=== PATIENT | female | born 1985 ===

== ENCOUNTER 2018-08-16 12:25 | Emergency (ER) | payer OTHER ==
--- NOTE | 2018-08-16 12:35 | ER Report ---
History and Physical Time Seen By MD: 12:35 HPI/ROS CHIEF COMPLAINT: Seizure HISTORY OF PRESENT ILLNESS: 32-year-old female patient presents to emergency room with complaint of a seizure. Patient states that she was at physical therapy this morning. She states that she was being palpated to the right shoulder. She states that she became dizzy, nauseated, states she was feeling sweaty. She states that she then passed out. She states when she came to she was informed by the physical therapist that she had had a seizure. Patient states that she did not have a postictal phase. She states that she was out of it for approximately 20 seconds and then came to normally. She states that currently she feels fine. She states she has had a history of abnormal heart beat intermittently. She states that she often will feel a hard beat in the chest. She also states that she has been intermittently dizzy for quite some time. She states there is nothing seems to precipitate her dizziness. Patient states that when she had come to that they checked her blood pressure and she was told that it was very low at that time. REVIEW OF SYSTEMS: Respiratory: No cough, no dyspnea. Cardiovascular: No chest pain, no palpitations. Gastrointestinal: No vomiting, no abdominal pain. Musculoskeletal: No back pain. Allergies: Coded Allergies: Penicillins (Verified Allergy, Unknown, 08/16/18) Sulfa (Sulfonamide Antibiotics) (Verified Allergy, Unknown, 08/16/18) aspirin (Verified Allergy, Unknown, 08/16/18) ciprofloxacin (Verified Allergy, Unknown, 08/16/18) Past Medical/Surgical History Patient has no pertinent medical history. Patient has a surgical history of wisdom teeth removed. Reviewed Nurses Notes: Yes Constitutional Vital Sign - Last 24 Hours 08/16/18 08/16/18 12:34 14:00 Temp 97.5 Pulse 76 71 84 75 Resp 20 B/P (MAP) 116/60 119/70 (86) 118/70 (86) 114/75 (88) Pulse Ox 100 98 O2 Delivery Room Air Physical Exam General Appearance: The patient is alert, has no immediate need for airway protection and no current signs of toxicity. Respiratory: Chest is non tender, lungs are clear to auscultation. Cardiac: regular rate and rhythm Gastrointestinal: Abdomen is soft and non tender, no masses, bowel sounds normal. Musculoskeletal: Neck: Neck is supple and non tender. Extremities have full range of motion and are non tender. Skin: No rashes or lesions. DIFFERENTIAL DIAGNOSIS: After history and physical exam differential diagnosis was considered for a seizure including but not limited to electrolyte abnormality, alcohol withdrawal, medication noncompliance, head injury, and breakthrough seizure. Also included in this differential issyncope including but not limited to vasovagal syncope, arrhythmia, dehydration, and blood loss. Medical Decision Making Data Points Result Diagram: 08/16/18 1237 08/16/18 1237 Laboratory Hematology Test 08/16/18 12:35 08/16/18 12:37 Urine Color Yellow Urine Clarity Clear Urine pH 6.0 pH (4.8-9.5) Urine Specific [place] 1.013 Urine Protein Negative mg/dL (NEGATIVE) Urine Glucose (UA) Negative mg/dL (NEGATIVE) Urine Ketones Negative mg/dL (NEGATIVE) Urine Blood Negative (NEGATIVE) Urine Nitrite Negative (NEGATIVE) Urine Bilirubin Negative (NEGATIVE) Urine Urobilinogen Negative mg/dL (0.2-1.9) Urine Leukocyte Esterase Trace (NEGATIVE) Urine RBC 1 /HPF (0-2/HPF) Urine WBC 1 /HPF (0-5/HPF) Urine Squamous Epithelial Cells Few /LPF (</=FEW) Urine Bacteria Few /HPF (NONE-FEW) Urine Mucus None /HPF (NONE-FEW) Red Blood Count 4.28 M/uL (4.17-5.56) Mean Corpuscular Volume 95.0 fL (80.0-96.0) Mean Corpuscular Hemoglobin 31.8 pg (26.0-33.0) Mean Corpuscular Hemoglobin Concent 33.5 g/dL (32.0-36.0) Red Cell Distribution Width 12.5 % (11.5-14.5) Mean Platelet Volume 8.3 fL (7.2-11.1) Neutrophils (%) (Auto) 53.7 % (39.4-72.5) Lymphocytes (%) (Auto) 32.8 % (17.6-49.6) Monocytes (%) (Auto) 9.7 % (4.1-12.4) Eosinophils (%) (Auto) 2.4 % (0.4-6.7) Basophils (%) (Auto) 1.4 % (0.3-1.4) Nucleated RBC Relative Count (auto) 0.1 /100WBC Neutrophils # (Auto) 2.7 K/uL (2.0-7.4) Lymphocytes # (Auto) 1.6 K/uL (1.3-3.6) Monocytes # (Auto) 0.5 K/uL (0.3-1.0) Eosinophils # (Auto) 0.1 K/uL (0.0-0.5) Basophils # (Auto) 0.1 K/uL (0.0-0.1) Nucleated RBC Absolute Count (auto) 0.00 K/uL Sodium Level 138 mmol/L (137-145) Potassium Level 3.9 mmol/L (3.5-5.0) Chloride Level 107 mmol/L (98-107) Carbon Dioxide Level 25 mmol/L (22-31) Blood Urea Nitrogen 13 mg/dl (7-18) Creatinine 0.60 mg/dl (0.52-1.04) Glomerular Filtration Rate Calc > 60.0 Random Glucose 89 mg/dl (75-110) Calcium Level 9.0 mg/dl (8.4-10.2) Total Bilirubin 0.8 mg/dl (0.2-1.3) Aspartate Amino Transf (AST/SGOT) 33 U/L (0-35) Alanine Aminotransferase (ALT/SGPT) 17 U/L (0-56) Alkaline Phosphatase 47 U/L (0-126) Total Protein 7.5 g/dl (6.3-8.2) Albumin 4.3 g/dl (3.5-5.0) Human Chorionic Gonadotropin, Qual Negative (NEGATIVE) Chemistry Test 08/16/18 12:35 08/16/18 12:37 Urine Color Yellow Urine Clarity Clear Urine pH 6.0 pH (4.8-9.5) Urine Specific [place] 1.013 Urine Protein Negative mg/dL (NEGATIVE) Urine Glucose (UA) Negative mg/dL (NEGATIVE) Urine Ketones Negative mg/dL (NEGATIVE) Urine Blood Negative (NEGATIVE) Urine Nitrite Negative (NEGATIVE) Urine Bilirubin Negative (NEGATIVE) Urine Urobilinogen Negative mg/dL (0.2-1.9) Urine Leukocyte Esterase Trace (NEGATIVE) Urine RBC 1 /HPF (0-2/HPF) Urine WBC 1 /HPF (0-5/HPF) Urine Squamous Epithelial Cells Few /LPF (</=FEW) Urine Bacteria Few /HPF (NONE-FEW) Urine Mucus None /HPF (NONE-FEW) White Blood Count 5.0 k/uL (4.5-11.0) Red Blood Count 4.28 M/uL (4.17-5.56) Hemoglobin 13.6 g/dL (12.0-16.0) Hematocrit 40.6 % (34.0-47.0) Mean Corpuscular Volume 95.0 fL (80.0-96.0) Mean Corpuscular Hemoglobin 31.8 pg (26.0-33.0) Mean Corpuscular Hemoglobin Concent 33.5 g/dL (32.0-36.0) Red Cell Distribution Width 12.5 % (11.5-14.5) Platelet Count 258 K/uL (150-450) Mean Platelet Volume 8.3 fL (7.2-11.1) Neutrophils (%) (Auto) 53.7 % (39.4-72.5) Lymphocytes (%) (Auto) 32.8 % (17.6-49.6) Monocytes (%) (Auto) 9.7 % (4.1-12.4) Eosinophils (%) (Auto) 2.4 % (0.4-6.7) Basophils (%) (Auto) 1.4 % (0.3-1.4) Nucleated RBC Relative Count (auto) 0.1 /100WBC Neutrophils # (Auto) 2.7 K/uL (2.0-7.4) Lymphocytes # (Auto) 1.6 K/uL (1.3-3.6) Monocytes # (Auto) 0.5 K/uL (0.3-1.0) Eosinophils # (Auto) 0.1 K/uL (0.0-0.5) Basophils # (Auto) 0.1 K/uL (0.0-0.1) Nucleated RBC Absolute Count (auto) 0.00 K/uL Glomerular Filtration Rate Calc > 60.0 Calcium Level 9.0 mg/dl (8.4-10.2) Total Bilirubin 0.8 mg/dl (0.2-1.3) Aspartate Amino Transf (AST/SGOT) 33 U/L (0-35) Alanine Aminotransferase (ALT/SGPT) 17 U/L (0-56) Alkaline Phosphatase 47 U/L (0-126) Total Protein 7.5 g/dl (6.3-8.2) Albumin 4.3 g/dl (3.5-5.0) Human Chorionic Gonadotropin, Qual Negative (NEGATIVE) Urinalysis Test 08/16/18 12:35 Urine Color Yellow Urine Clarity Clear Urine pH 6.0 pH (4.8-9.5) Urine Specific [place] 1.013 Urine Protein Negative mg/dL (NEGATIVE) Urine Glucose (UA) Negative mg/dL (NEGATIVE) Urine Ketones Negative mg/dL (NEGATIVE) Urine Blood Negative (NEGATIVE) Urine Nitrite Negative (NEGATIVE) Urine Bilirubin Negative (NEGATIVE) Urine Urobilinogen Negative mg/dL (0.2-1.9) Urine Leukocyte Esterase Trace (NEGATIVE) Urine RBC 1 /HPF (0-2/HPF) Urine WBC 1 /HPF (0-5/HPF) Urine Squamous Epithelial Cells Few /LPF (</=FEW) Urine Bacteria Few /HPF (NONE-FEW) Urine Mucus None /HPF (NONE-FEW) EKG/Imaging EKG Interpretation 12 lead EKG: Rhythm: normal sinus rhythm with a ventricular rate of 60 bpm [place]: normal QRS: normal ST segments: normal Imaging EXAMINATION: Head CT without intravenous contrast HISTORY: Seizure. COMPARISON: None. TECHNIQUE: Contiguous axial images were obtained from the skull base to the vertex without intravenous contrast. Sagittal and coronal reformatted images are also submitted. One of the following dose optimization techniques was utilized in the performance of this exam: Automated exposure control; adjustment of the mA and/or kV according to the patient's size; or use of an iterative reconstruction technique. Specific details can be referenced in the facility's radiology CT exam operational policy. FINDINGS: Brain and intracranial structures: Ventricles, sulci, and cisterns are normal in size. Armstrong-white matter differentiation is maintained. No midline shift, acute hemorrhage, acute infarct, or mass. Calvarium / scalp: Negative. No acute fracture. Skull base / visualized face: Rightward deviation of the nasal septum. Visualized sinuses / orbits: Negative. IMPRESSION: No CT evidence of acute intracranial pathology. Report Dictated By: Ranjan Aguilar MD at 08/16/2018 2:06 PM Report E-Signed By: Ranjan Aguilar MD at 08/16/2018 2:10 PM ED Course/Re-evaluation ED Course Patient was admitted to an exam room, history and physical were obtained. Differential diagnoses were considered. On examination lungs are clear, heart is regular, abdomen soft nontender. A CBC, CMP, EKG, CT scan of the head, urinalysis were done. The lab results were unremarkable. EKG showed a normal sinus rhythm, CT scan of the head showed no acute findings. I'm talking with the patient, the patient states that she was being massaged in the sore shoulder prior to feeling lightheaded and passing out. She states she did feel diaphoretic. That coupled with passing out and having jerking movements does petros marenemily this could very well have been a vasovagal syncope episode. I do not think that it was a seizure, as there was no postictal episode and lab results were unremarkable. I discussed the findings with patient. We did do orthostatic blood pressures which were unremarkable. We will go ahead and arrange for the patient had a Holter monitor. We will have her follow-up with Dr Ramirez, as previously scheduled next month. She is return to emergency room if condition worsens. I would like her to increase her fluid intake. Patient was saying that she does have some right pelvic pain. We will go ahead and have her follow-up with gynecology for further evaluation of that. I discussed this with patient who verbalized understanding and agreement with plan. Decision to Disposition Date: August 16, 2018 Decision to Disposition Time: 14:43 Depart Departure Latest Vital Signs Vital Signs Date Time Temp Pulse Resp B/P (MAP) Pulse Ox O2 Delivery O2 Flow Rate FiO2 08/16/18 14:00 71 119/70 (86) 98 84 118/70 (86) 75 114/75 (88) 08/16/18 12:34 97.5 20 Room Air Impression: Primary Impression: Vasovagal syncope Additional Impression: Dizziness Condition: Improved Disposition: HOME OR SELF-CARE Patient Instructions: Syncope (ED) Additional Instructions: Increase fluid intake. Get plenty of rest. Continue with normal diet. Continue with normal activity. Return to the ER if condition worsens. Return the Holter Monitor in 48 hours. Follow up with Dr. Ramirez as previously scheduled. Problem Qualifiers YUNG GONSALES August 16, 2018 12:35
[2018-08-16] MEDS ORDERED: NS(*) 0.9% 1000 ML BAG 1,000 ML IV ONE (12:57)
--- NOTE | 2018-08-16 13:00 | EKG ---
FACILITY: [facility] - [place] PATIENT NAME: ELEANOR CULP : [id number] MR: [id number] V: [id number] EXAM DATE: ORDERING PHYSICIAN: YUNG GONSALES TECHNOLOGIST: DONNY Ayala Reason : SYNCOPE Blood Pressure : / mmHG Vent. Rate : 060 BPM Atrial Rate : 060 BPM P-R Int : 116 ms QRS Dur : 100 ms QT Int : 390 ms P-R-T Axes : 079 081 070 degrees QTc Int : 390 ms Normal sinus rhythm Normal ECG No previous ECGs available Confirmed by EVERETTE NAJERA ([id number]) on 08/16/2018 9:08:51 PM Referred By: Confirmed By:EVERETTE NAJERA
[2018-08-16 13:05] LABS: PLATELET COUNT, AUTOMATED 258 K/uL (150-450)
[2018-08-16 14:00] VITALS: BP 114/75
--- NOTE | 2018-08-16 14:17 | RADIOLOGY IMAGING REPORT ---
FACILITY: [facility] PATIENT NAME: Samantha Obrien : 1985 MR: [id number] V: [id number] EXAM DATE: ORDERING PHYSICIAN: YUNG GONSALES TECHNOLOGIST: [place] [facility] [place] Obrien : 1985 Visit/Account:[id number] Date of Sevice: 08/16/2018 EXAMINATION: Head CT without intravenous contrast HISTORY: Seizure. COMPARISON: None. TECHNIQUE: Contiguous axial images were obtained from the skull base to the vertex without intraven ous contrast. Sagittal and coronal reformatted images are also submitted. One of the following dose optimization techniques was utilized in the performance of this exam: Autom ated exposure control; adjustment of the mA and/or kV according to the patient's size; or use of an i terative reconstruction technique. Specific details can be referenced in the facility's radiology C T exam operational policy. FINDINGS: Brain and intracranial structures: Ventricles, sulci, and cisterns are normal in size. Armstrong-white ma tter differentiation is maintained. No midline shift, acute hemorrhage, acute infarct, or mass. Calvarium / scalp: Negative. No acute fracture. Skull base / visualized face: Rightward deviation of the nasal septum. Visualized sinuses / orbits: Negative. IMPRESSION: No CT evidence of acute intracranial pathology. Report Dictated By: Rnajan Aguilar MD at 08/16/2018 2:06 PM Report E-Signed By: Ranjan Aguilar MD at 08/16/2018 2:10 PM WSN:[id number]
--- NOTE | 2018-08-21 14:06 | RT HOLTER TEST ---
FACILITY: [facility] PATIENT NAME: ELEANOR CULP : [id number] MR: [id number] V: [id number] EXAM DATE: ORDERING PHYSICIAN: YUNG GONSALES TECHNOLOGIST: IRVIN Hook-up date: 2018-08-16 15:29:00 Duration: 24:00:00 Test Indications: SYNCOPE Medications: N/A [id number] QRS complexes * Ventricular ectopics which represent % of total QRS comp. 2 Supraventricular ectopics which represent <1 % of total QRS comp. * Paced QRS complexes which represent % of total QRS comp. VENTRICULAR ECTOPY * Isolated * Bigeminal Cycles * Couplets * Runs * Beats in Runs * Beats LONGEST at * BPM at :: -- * Beats FASTEST at * BPM at :: -- SUPRAVENTRICULAR ECTOPY 2 Isolated 0 Couplets 0 Runs 0 Beats in Runs * Beats LONGEST at * BPM at :: -- * Beats FASTEST at * BPM at :: -- HEART RATES 44 MIN at 06:05:27 2018-08-17 75 AVG 131 MAX at 10:04:42 2018-08-17 LONGEST RR 1.392 secs at :05:23 2018-08-17 S-T LEVELS Channel 1 -12.800 mm MIN at 15:29:00 2018-08-16 -12.800 mm MAX at 15:29:00 2018-08-16 Channel 2 -12.800 mm MIN at 15:29:00 2018-08-16 -12.800 mm MAX at 15:29:00 2018-08-16 Channel 3 -12.800 mm MIN at 15:29:00 2018-08-16 -12.800 mm MAX at 15:29:00 2018-08-16 She reported two symptom events. Both showed a normal sinus rhythm during that time frame. She was predominantly in a sinus rhythm with only 2 supraventricular ectopy beats and no ventricular ectopy Confirmed by THAO BONNER ([id number]) on 08/21/2018 2:06:21 PM Referred By: Overread By: THAO BONNER
== END 2018-08-16 15:37 | disposition home or self-care (01) ==
LOC: ER 12:46
DX: R55 Syncope and collapse (principal); R42 Dizziness and giddiness
CPT/HCPCS: 70450; 81001; 84703; 85025; 93005; 96360; 96361; 99284; J7030; 82040; 82247; 82310; 82374; 82435; 82565; 82947; 84075; 84132; 84155; 84295; 84450; 84460; 84520; 93225

== ENCOUNTER → 2018-09-19 | Outpatient (CLI) | payer OTHER ==
[~2018-09-19] MED LIST: IBUP-136 PO
== END ==
LOC: LAB 10:55
PROVIDERS: ATTEND Emergency Medicine
DX: R00.2 Palpitations (principal); R42 Dizziness and giddiness; R10.2 Pelvic and perineal pain
CPT/HCPCS: 36415; 82465; 82607; 82784; 83516; 83718; 84443; 84478